=== PATIENT | male | born 1955 | race African-American/Black ===

== ENCOUNTER 2017-03-02 13:47 | Emergency (ER) | payer OTHER ==
--- NOTE | 2017-03-02 13:59 | PDOC ---
History of Present Illness - General History Source: Patient Exam Limitations: No Limitations - History of Present Illness Initial Comments: 03/02/17 14:03 The patient is a 61 year old male with a significant past medical history of chronic schizophrenia and mood disorder, hypertension, current cigarette smoker , sent from senior living by ambulance to the Emergency Department with episodes of vomiting yesterday. The patient reports that yesterday he has multiple episodes of vomiting, muscle aches, and fatigue, though these symptoms have resolved. He reports that the senior living sent him here though he feels fine. He admits that he is hungry, as he forgot his dentures and has not eaten today. The patient has no other complaints. The patient denies current nausea, vomiting, and diarrhea. Patient denies myalgia, neck pain, and back pain. Patient denies shortness of breath, or cough. <Megan Adams - Last Filed: 03/02/17 14:05> <Neema Valladares - Last Filed: 03/13/17 09:46> - General Stated Complaint: PAIN/WEAKNESS Time Seen by Provider: 03/02/17 13:55 Past History <Megan Adams - Last Filed: 03/02/17 14:05> - Past Medical History Anemia: No Asthma: No Cancer: No Cardiac Disorders: Yes CVA: No COPD: No CHF: No Dementia: No Diabetes: No GI Disorders: No Disorders: Yes HTN: Yes Hypercholesterolemia: No Liver Disease: No Psychiatric Problems: Yes (schizophrenia) Seizures: No Thyroid Disease: No - Surgical History Abdominal Surgery: No Appendectomy: No Cardiac Surgery: No Cholecystectomy: No Lung Surgery: No Neurologic Surgery: No Orthopedic Surgery: No - Psycho/Social/Smoking Cessation Hx Suicidal Ideation: No Smoking Status: Yes Smoking History: Current every day smoker Have you smoked in the past 12 months: Yes Number of Cigarettes Smoked Daily: 10 'Breaking Loose' booklet given: 01/04/15 Hx Alcohol Use: No Drug/Substance Use Hx: No Substance Use Type: None Hx Substance Use Treatment: No <Neema Valladares - Last Filed: 03/13/17 09:46> - Past Medical History Allergies/Adverse Reactions: Allergies Allergy/AdvReac Type Severity Reaction Status Date / Time Penicillins Allergy Unknown Verified 03/02/17 13:58 Home Medications: Ambulatory Orders Albuterol Sulfate Inhaler - [Ventolin Hfa Inhaler -] 1 - 2 inh PO QID 03/02/17 Amlodipine Besylate [Norvasc -] 5 mg PO DAILY 03/02/17 Ammonium Lactate [Quiana-Hydrolac] 240 gm TP BID 03/02/17 Aspirin [ASA -] 81 mg PO DAILY 03/02/17 Azelastine HCl 137 mcg NS BID 03/02/17 Cholecalciferol (Vitamin D3) [Vitamin D3] 50,000 unit PO WEEKLY 03/02/17 Clotrimazole 30 ml TP BID 03/02/17 Clozapine 300 mg PO BID 03/02/17 Divalproex *ER* [Depakote *ER* -] 500 mg PO BID 03/02/17 Divalproex Sodium [Depakote] 250 mg PO HS 03/02/17 Docusate Sodium 100 mg PO HS 03/02/17 Finasteride [Proscar] 5 mg PO DAILY 03/02/17 Lisinopril [Zestril] 40 mg PO DAILY 03/02/17 Meloxicam 7.5 mg PO DAILY 03/02/17 Tamsulosin HCl [Flomax] 0.4 mg PO DAILY 03/02/17 Review of Systems - Review of Systems Able to Perform ROS?: Yes Comments:: 03/02/17 14:03 CONSTITUTIONAL: Present: + hungry Absent: fever, chills, diaphoresis, generalized weakness, malaise, loss of appetite HEENT: Absent: rhinorrhea, nasal congestion, throat pain, throat swelling, difficulty swallowing, mouth swelling, ear pain, eye pain, visual Changes CARDIOVASCULAR: Absent: chest pain, syncope, palpitations, irregular heart rate, lightheadedness , peripheral edema RESPIRATORY: Absent: cough, shortness of breath, dyspnea with exertion, orthopnea, wheezing, stridor, hemoptysis GASTROINTESTINAL: Absent: abdominal pain, abdominal distension, nausea, vomiting, diarrhea, constipation, melena, hematochezia GENITOURINARY: Absent: dysuria, frequency, urgency, hesitancy, hematuria, flank pain, genital pain MUSCULOSKELETAL: Absent: myalgia, arthralgia, joint swelling SKIN: Absent: rash, itching, pallor HEMATOLOGIC/IMMUNOLOGIC: Absent: easy bleeding, easy bruising, lymphadenopathy, frequent infections ENDOCRINE: Absent: unexplained weight gain, unexplained weight loss, heat intolerance, cold intolerance NEUROLOGIC: Absent: headache, focal weakness or paresthesias, dizziness, unsteady gait, seizure, mental status changes, bladder or bowel incontinence PSYCHIATRIC: Absent: anxiety, depression, suicidal or homicidal ideation, hallucinations. <Megan Adams - Last Filed: 03/02/17 14:05> *Physical Exam - Vital Signs Last Vital Signs Temp Pulse Resp BP Pulse Ox 98.8 F 107 H 17 140/108 95 03/02/17 13:58 03/02/17 13:58 03/02/17 13:58 03/02/17 13:58 03/02/17 13:58 - Physical Exam Comments: 03/02/17 14:06 GENERAL: Well developed, well nourished. Awake and alert. In no acute distress. HEENT: Normocephalic, atraumatic. PERRLA, EOMI. No conjunctival pallor. Sclera are non- icteric. Moist mucous membranes. Oropharynx is clear. NECK: Supple. Full ROM. No JVD. Carotid pulses 2+ and symmetric, without bruits. No thyromegaly. No lymphadenopathy. CARDIOVASCULAR: Regular rate and rhythm. No murmurs, rubs, or gallops. Distal pulses are 2+ and symmetric. PULMONARY: No evidence of respiratory distress. Lungs clear to auscultation bilaterally. No wheezing, rales or rhonchi. ABDOMINAL: Soft. Non-tender. Non-distended. No rebound or guarding. No organomegaly. Normoactive bowel sounds. MUSCULOSKELETAL Normal range of motion at all joints. No bony deformities or tenderness. No CVA tenderness. EXTREMITIES: No cyanosis. No clubbing. No edema. No calf tenderness. SKIN: Warm and dry. Normal capillary refill. No rashes. No jaundice. NEUROLOGICAL: Alert, awake, appropriate. Cranial nerves 2-12 intact. No deficits to light touch and temperature in face, upper extremities and lower extremities. No motor deficits in the in face, upper extremities and lower extremities. Normoreflexic in the upper and lower extremities. Normal speech. Toes are downgoing bilaterally. PSYCHIATRIC: Cooperative. Good eye contact. Appropriate mood and affect. <Megan Adams - Last Filed: 03/02/17 14:05> Heart Score/ECG Review #1 General ECG Interpretation: Sinus Rhythm, Normal Rate (102), Normal Intervals, No acute ischemic changes - ECG Intrepretation Rhythm: Regular Rhythm - [place]: Normal <Neema Valladares - Last Filed: 03/13/17 09:46> ED Treatment Course - LABORATORY CBC & Chemistry Diagram: 03/02/17 14:02 03/02/17 14:02 <Neema Valladares - Last Filed: 03/13/17 09:46> Medical Decision Making - Medical Decision Making 03/02/17 13:56 61 yo M with h/o schizophrenia and mood disorder, tobacco use lives in a senior living, sent for evaluation for " not feeling well" pt state he threw up yesterday but has not thrown up today no f/c no chest pain no sob. no cough. no current complaints. was co myalgia at home. no other complaints. calm and cooperative in Ed on exam awake and alert lungs CTAB no crackles. heart RRR no mr/g. abd soft NT ND. skin warm and dry. differential: electorlyte abnormality, anemia, viral syndrome. plan trial po, cxr labs reassess. motrin for reported myalgia. 03/02/17 16:44 pt tolerated po. xray unremarkable. labs with mild increase to creatinine 1.8 given iv hydration. eating and drinking without diffiuclty. dc to senior living. 03/13/17 09:46 <Neema Valladares - Last Filed: 03/13/17 09:46> *DC/Admit/Observation/Transfer - Attestations Scribe Attestion: 03/02/17 14:04 Documentation prepared by Megan Adams, acting as medical videographer for Neema Valladares MD. <Megan Adams - Last Filed: 03/02/17 14:05> - Discharge Dispostion Admit: No <Neema Valladares - Last Filed: 03/13/17 09:46> Diagnosis at time of Disposition: Dehydration - Discharge Dispostion Disposition: HOME Condition at time of disposition: Improved - Referrals Referrals: Torri De León MD [Primary Care Provider] - - Patient Instructions Printed Discharge Instructions: Dehydration Additional Instructions: drink plenty of fluids. follow up wtih dr. Alaina Chapa . return for any problems or concerns vomiting or any problems
[2017-03-02] MEDS ORDERED: ACETAMINOPHEN 325 MG TABLET (FP) PO ONE (14:01)
[2017-03-02 14:04] VITALS: BMI 27.1
[2017-03-02] MEDS ORDERED: ACETAMINOPHEN 325 MG TABLET (FP) ONE (14:18)
[2017-03-02 14:43] LABS: BASOPHIL 0.8 % (0-2.0); MCH 29.8 pg (25.7-33.7); MCHC 32.8 g/dl (32.0-35.9); MEAN CELL VOLUME 90.9 fl (80-96); NEUTROPHILS 41.7 % (42.8-82.8); PLATELET COUNT 140 K/MM3 (134-434); RDW 17.1 % (11.9-15.9); WHITE BLOOD COUNT 5.7 K/mm3 (4.0-10.0)
[2017-03-02 15:08] LABS: ANION GAP 7 (8-16); CO2 29 mmol/L (21-32); COCKROFT - GAULT 55.29; CREATININE 1.8 mg/dL (0.7-1.3); GLUCOSE,RANDOM 93 mg/dL (74-106); SGOT/AST 21 U/L (15-37); SGPT/ALT 19 U/L (12-78)
[2017-03-02 15:10] LABS: ALK PHOS 77 U/L (45-117); BILIRUBIN,TOTAL 0.4 mg/dL (0.2-1.0); TOT PROT 6.3 g/dl (6.4-8.2)
[2017-03-02] MEDS ORDERED: SODIUM CHLORIDE 0.9% 1000 ML INFUS.BAG IV ONE (15:30)
[2017-03-02 17:00] VITALS: BP 133/85; PULSE 89; TEMP 98.4
--- NOTE | 2017-03-04 10:02 | EKG ---
Test Reason : Blood Pressure : / mmHG Vent. Rate : 102 BPM Atrial Rate : 102 BPM P-R Int : 172 ms QRS Dur : 098 ms QT Int : 374 ms P-R-T Axes : 031 -37 021 degrees QTc Int : 487 ms SINUS TACHYCARDIA LEFT AXIS DEVIATION SEPTAL INFARCT , AGE UNDETERMINED ABNORMAL ECG WHEN COMPARED WITH ECG OF 03-JAN-2015 14:04, PREMATURE VENTRICULAR COMPLEXES ARE NO LONGER PRESENT Confirmed by THAD PAPPAS MD ([id number]) on 03/04/2017 10:02:23 AM Referred By: Confirmed By:THAD PAPPAS MD
== END 2017-03-02 20:02 | disposition home or self-care (01) ==
LOC: JER 13:47
DX: E86.0 Dehydration (principal); R11.10 Vomiting, unspecified; I10 Essential (primary) hypertension; F20.9 Schizophrenia, unspecified; F39 Unspecified mood [affective] disorder; F17.210 Nicotine dependence, cigarettes, uncomplicated
CPT/HCPCS: 36415; 71020-TC; 80053; 82550; 82553; 83690; 85025; 93005; 93010; 99285-25

== ENCOUNTER 2017-05-25 13:22 | Emergency (ER) | payer OTHER ==
[2017-05-25 13:52] VITALS: BMI 23.0
--- NOTE | 2017-05-25 14:09 | PDOC ---
History of Present Illness <Chin Amador - Last Filed: 05/25/17 20:34> - General History Source: Patient, Other ([facility] ) Exam Limitations: Other (poor historian) - History of Present Illness Initial Comments: 05/25/17 14:09 Patient is a 62 year old male with a history of schizophrenia, mood disorders and hypertension sent from shelter due to two days of feeling dizzy and 3 months of decreased appetite and weight loss. The patient endorses every question with "a little bit" including fever, chills , sore throat, SOB, CP, abdominal pain, nausea, vomiting, diarrhea. However, if you ask in reverse, patient denies everything except for general weakness. The shelter endorsed that the patient has been complaining of dizziness and walking like he is unsteady for the last 2 days. He also has not had an appetite (15 lb weight loss) or "been acting like himself" since his last ED visit on 03/02/2017. Patient had a non concerning 24 hour halter 1 month ago, scheduled for stress test. <Porfirio Moran - Last Filed: 05/26/17 11:44> - General Chief Complaint: Lightheaded Stated Complaint: DIZINESS Time Seen by Provider: 05/25/17 13:49 Past History <Chin Amador - Last Filed: 05/25/17 20:34> - Past Medical History Anemia: No Asthma: No Cancer: No Cardiac Disorders: Yes CVA: No COPD: No CHF: No Dementia: No Diabetes: No GI Disorders: No Disorders: Yes HTN: Yes Hypercholesterolemia: No Liver Disease: No Psychiatric Problems: Yes (schizophrenia) Seizures: No Thyroid Disease: No - Surgical History Abdominal Surgery: No Appendectomy: No Cardiac Surgery: No Cholecystectomy: No Lung Surgery: No Neurologic Surgery: No Orthopedic Surgery: No - Immunization History Immunization Up to Date: Yes - Psycho/Social/Smoking Cessation Hx Suicidal Ideation: No Smoking Status: Yes Smoking History: Current every day smoker Have you smoked in the past 12 months: Yes Number of Cigarettes Smoked Daily: 20 Information on smoking cessation initiated: Yes 'Breaking Loose' booklet given: 05/25/17 Hx Alcohol Use: No Drug/Substance Use Hx: No Substance Use Type: None Hx Substance Use Treatment: No <Porfirio Moran - Last Filed: 05/26/17 11:44> - Past Medical History Allergies/Adverse Reactions: Allergies Allergy/AdvReac Type Severity Reaction Status Date / Time Penicillins Allergy Unknown Verified 03/02/17 13:58 Home Medications: Ambulatory Orders Albuterol Sulfate Inhaler - [Ventolin Hfa Inhaler -] 1 - 2 inh PO QID 03/02/17 Amlodipine Besylate [Norvasc -] 5 mg PO DAILY 03/02/17 Ammonium Lactate [Quiana-Hydrolac] 240 gm TP BID 03/02/17 Aspirin [ASA -] 81 mg PO DAILY 03/02/17 Azelastine HCl 137 mcg NS BID 03/02/17 Cholecalciferol (Vitamin D3) [Vitamin D3] 50,000 unit PO WEEKLY 03/02/17 Clotrimazole 30 ml TP BID 03/02/17 Clozapine 300 mg PO BID 03/02/17 Divalproex *ER* [Depakote *ER* -] 500 mg PO BID 03/02/17 Divalproex Sodium [Depakote] 250 mg PO HS 03/02/17 Docusate Sodium 100 mg PO HS 03/02/17 Finasteride [Proscar] 5 mg PO DAILY 03/02/17 Lisinopril [Zestril] 40 mg PO DAILY 03/02/17 Meloxicam 7.5 mg PO DAILY 03/02/17 Tamsulosin HCl [Flomax] 0.4 mg PO DAILY 03/02/17 Levofloxacin [Levaquin] 500 mg PO DAILY #7 tablet 05/25/17 Review of Systems - Review of Systems Able to Perform ROS?: Yes Is the patient limited [place] proficient: No Constitutional: Yes: Weakness HEENTM: Yes: See HPI Respiratory: Yes: See HPI Cardiac (ROS): Yes: See HPI ABD/GI: Yes: See HPI : Yes: See HPI Musculoskeletal: Yes: See HPI Integumentary: Yes: See HPI Neurological: Yes: See HPI, Weakness, Dizziness Endocrine: Yes: See HPI Hematologic/Lymphatic: Yes: See HPI <Porfirio Moran - Last Filed: 05/26/17 11:44> *Physical Exam - Vital Signs Last Vital Signs Temp Pulse Resp BP Pulse Ox 98.6 F 98 H 20 144/91 96 05/25/17 19:16 05/25/17 19:16 05/25/17 19:16 05/25/17 19:16 05/25/17 19:16 <Chin Amador - Last Filed: 05/25/17 20:34> - Vital Signs Last Vital Signs Temp Pulse Resp BP Pulse Ox 98.5 F 86 18 101/73 98 05/25/17 13:25 05/25/17 13:25 05/25/17 13:25 05/25/17 13:25 05/25/17 13:25 - Physical Exam General Appearance: Yes: Nourished, Appropriately Dressed, Apparent Distress HEENT: positive: EOMI, JULI Neck: positive: Supple. negative: Decreased range of motion, Lymphadenopathy (R ), Lymphadenopathy (L) Respiratory/Chest: positive: Lungs Clear, Normal Breath Sounds. negative: Chest Tender, Respiratory Distress Cardiovascular: positive: Regular Rhythm, Regular Rate. negative: Edema, JVD, Murmur Vascular Pulses: Carotid (R): 2+, Carotid (L): 2+, Dorsalis-Pedis (R): 2+ Gastrointestinal/Abdominal: positive: Normal Bowel Sounds, Tender, Soft. negative: Distended, Guarding, Rebound, Tenderness Musculoskeletal: positive: Normal Inspection. 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 negative: Confused, Disoriented Deep Tendon Reflexes: Knee (L): 2+, Knee (R): 2+, Bicep (L): 2+, Bicep (R): 2+ <Porfirio Moran - Last Filed: 05/26/17 11:44> ED Treatment Course - LABORATORY CBC & Chemistry Diagram: 05/25/17 15:41 05/25/17 15:41 - ADDITIONAL ORDERS Additional order review: Laboratory Results 05/25/17 05/25/17 05/25/17 15:41 15:41 15:35 Sodium 143 Potassium 3.9 Chloride 103 Carbon Dioxide 32 Anion Gap 8 BUN 36 H D Creatinine 1.7 H Creat Clearance w eGFR 41.04 Random Glucose 103 Lactic Acid 1.6 Calcium 9.0 Total Bilirubin 0.6 AST 17 ALT 15 Alkaline Phosphatase 73 Creatine Kinase 148 Troponin I < 0.02 Total Protein 6.6 Albumin 3.0 L TSH 0.42 Urine Color Yellow Urine Appearance Clear Urine pH 7.0 Urine Protein Negative Urine Glucose (UA) Negative Urine Ketones Negative Urine Blood Negative Urine Nitrite Negative Urine Bilirubin Negative Urine Urobilinogen 4.0 e.u/dl Ur Leukocyte Esterase Negative 05/25/17 15:41 RBC 4.09 MCV 90.8 MCHC 33.6 RDW 15.9 MPV 9.2 Neutrophils % 72.9 D Lymphocytes % 17.3 D Monocytes % 8.7 Eosinophils % 0.7 Basophils % 0.4 - Medications Given in the ED: ED Medications Discontinued Medications Generic Name Dose Route Start Last Admin Trade Name Freq PRN Reason Stop Dose Admin Sodium Chloride 1,000 mls @ 1,000 mls/hr 05/25/17 18:53 05/25/17 19:06 Normal Saline - IV 05/25/17 19:52 1,000 mls/hr ASDIR STA Administration <Chin Amador - Last Filed: 05/25/17 20:34> - LABORATORY CBC & Chemistry Diagram: 05/25/17 15:41 05/25/17 15:41 - RADIOLOGY Chest X-Ray Result: Other (Increased L base atelectasis) <Porfirio Moran - Last Filed: 05/26/17 11:44> Medical Decision Making - Medical Decision Making 05/25/17 14:09 62 year old with schizophrenia presenting with general weakness, malaise and reported decreased appetite for two days Ddx is extensive and not limited to infections, electrolyte abnormalities, cardiac pathologies, Basic labs, Lactic acid Cardiac enzymes UA CXR Feed, monitor and reassess 05/25/17 16:42 CBC WBC 9.4 K/mm3 (4.0-10.0) D 05/25/17 15:41 RBC 4.09 M/mm3 (4.00-5.60) 05/25/17 15:41 Hgb 12.5 GM/dL (11.7-16.9) 05/25/17 15:41 Hct 37.1 % (35.4-49) 05/25/17 15:41 MCV 90.8 fl (80-96) 05/25/17 15:41 MCH 30.5 pg (25.7-33.7) 05/25/17 15:41 MCHC 33.6 g/dl (32.0-35.9) 05/25/17 15:41 RDW 15.9 % (11.9-15.9) 05/25/17 15:41 Plt Count 153 K/MM3 (134-434) 05/25/17 15:41 MPV 9.2 fl (7.5-11.1) 05/25/17 15:41 Neutrophils % 72.9 % (42.8-82.8) D 05/25/17 15:41 Lymphocytes % 17.3 % (8-40) D 05/25/17 15:41 Monocytes % 8.7 % (3.8-10.2) 05/25/17 15:41 Eosinophils % 0.7 % (0-4.5) 05/25/17 15:41 Basophils % 0.4 % (0-2.0) 05/25/17 15:41 non concerning CBC Urine Test Results Urine Color Yellow 05/25/17 15:41 Urine Appearance Clear 05/25/17 15:41 Urine pH 7.0 (5.0-8.0) 05/25/17 15:41 Urine Protein Negative (NEGATIVE) 05/25/17 15:41 Urine Glucose (UA) Negative (NEGATIVE) 05/25/17 15:41 Urine Ketones Negative (NEGATIVE) 05/25/17 15:41 Urine Blood Negative (NEGATIVE) 05/25/17 15:41 Urine Nitrite Negative (NEGATIVE) 05/25/17 15:41 Urine Bilirubin Negative (NEGATIVE) 05/25/17 15:41 Ur Leukocyte Esterase Negative (NEGATIVE) 05/25/17 15:41 non concerning UA 05/25/17 17:28 Lactic acid 1.6, non concerning Patient states he is feeling better and asking for soup. Ate 2x sandwiches and a full meal plate. Healthy appetite. 05/25/17 18:52 CMP Sodium 143 mmol/L (136-145) 05/25/17 15:41 Potassium 3.9 mmol/L (3.5-5.1) 05/25/17 15:41 Chloride 103 mmol/L (98-107) 05/25/17 15:41 Carbon Dioxide 32 mmol/L (21-32) 05/25/17 15:41 Anion Gap 8 (8-16) 05/25/17 15:41 BUN 36 mg/dL (7-18) H D 05/25/17 15:41 Creatinine 1.7 mg/dL (0.7-1.3) H 05/25/17 15:41 Creat Clearance w eGFR 41.04 (>60) 05/25/17 15:41 Random Glucose 103 mg/dL (74-106) 05/25/17 15:41 Lactic Acid 1.6 mmol/L (0.4-2.0) 05/25/17 15:35 Calcium 9.0 mg/dL (8.5-10.1) 05/25/17 15:41 Total Bilirubin 0.6 mg/dL (0.2-1.0) 05/25/17 15:41 AST 17 U/L (15-37) 05/25/17 15:41 ALT 15 U/L (12-78) 05/25/17 15:41 Alkaline Phosphatase 73 U/L (45-117) 05/25/17 15:41 Creatine Kinase 148 IU/L (39-308) 05/25/17 15:41 Troponin I < 0.02 ng/ml (0.00-0.05) 05/25/17 15:41 Total Protein 6.6 g/dl (6.4-8.2) 05/25/17 15:41 Albumin 3.0 g/dl (3.4-5.0) L 05/25/17 15:41 TSH 0.42 uIU/ml (0.358-3.74) 05/25/17 15:41 CR per baseline (1.5-1.8) Slightly elevated BUN, patient to receive 1 NS for dehydration Good to go home after fluids and final read on CXR 05/25/17 19:49 Patient care signed out to Dr. Eckert <Porfirio Moran - Last Filed: 05/26/17 11:44> *DC/Admit/Observation/Transfer <Chin Amador - Last Filed: 05/25/17 20:34> - Attestations Physician Attestion: 05/26/17 11:44 I, Dr. Porfirio Moran, attest that this document has been prepared under my direction and personally reviewed by me in its entirety. I further attest, that it accurately reflects all work, treatment, procedures and medical decision -making performed by me. <Porfirio Moran - Last Filed: 05/26/17 11:44> Diagnosis at time of Disposition: PNA (pneumonia) - Discharge Dispostion Disposition: HOME Condition at time of disposition: Good - Prescriptions Prescriptions: Levofloxacin [Levaquin] 500 mg PO DAILY #7 tablet - Patient Instructions Printed Discharge Instructions: DI for Pneumonia -- Adult Additional Instructions: You have pneumonia. Take the antibiotics as prescribed. You can picker packer your prescription at the [facility] on [address] Follow up with your primary care doctor within 1 week for a re-evaluation. Print Language: GAMBIAN
--- NOTE | 2017-05-25 15:01 | PDOC ---
Attending Attestation - Resident Resident Name: Porfirio Moran - ED Attending Attestation I have performed the following: I have examined & evaluated the patient, The case was reviewed & discussed with the resident, I agree w/resident's findings & plan, Exceptions are as noted - HPI HPI: 05/25/17 15:00 62M with schizophrenia, HTN presenting with generalized weakness. Pt states that he has felt unwell for several days now. When asked if anything in particular is bothering him, he denies any focal complaints. DENIES CP/SOB. DENIES dizziness. DENIES HO/N/V. DENIES abdominal pain. DENIES diarrhea/ constipation. DENIES F/C. Pt states that he just feels weak all over. Pt is still able to ambulate without any difficulty, though he reports that he is more fatigued than normal. - Physicial Exam PE: 05/25/17 15:41 "GENERAL: Awake, alert, and fully oriented, in no acute distress HEAD: No signs of trauma EYES: PERRLA, EOMI, sclera anicteric, conjunctiva clear ENT: Auricles normal inspection, hearing grossly normal, nares patent, oropharynx clear without exudates. Moist mucosa NECK: Normal ROM, supple, no lymphadenopathy, JVD, or masses LUNGS: Breath sounds equal, clear to auscultation bilaterally. No wheezes, and no crackles HEART: Regular rate and rhythm, normal S1 and S2, no murmurs, rubs or gallops ABDOMEN: Nontender, Soft, normoactive bowel sounds. No guarding, no rebound. No masses EXTREMITIES: Normal range of motion, no edema. No clubbing or cyanosis. No cords, erythema, or tenderness NEUROLOGICAL: Cranial nerves II through XII intact, 5/5 strength and sensation in all extremities. Ambulatory with steady gait, no ataxia. EOMI, visual reina intact. No nystagmus. SKIN: Warm, Dry, normal turgor, no rashes or lesions noted. " 05/25/17 15:42 - Medical Decision Making 05/25/17 15:43 62 M with generalized weakness x several days. Etiology unclear. Will work up for infectious process, as well as cardiac process and metabolic derangement. Primary neuro process is unlikely given normal neuro exam. - Labs, trop - UA, CXR 05/25/17 20:13 CBC,CMP WBC 9.4 K/mm3 (4.0-10.0) D 05/25/17 15:41 RBC 4.09 M/mm3 (4.00-5.60) 05/25/17 15:41 Hgb 12.5 GM/dL (11.7-16.9) 05/25/17 15:41 Hct 37.1 % (35.4-49) 05/25/17 15:41 MCV 90.8 fl (80-96) 05/25/17 15:41 MCH 30.5 pg (25.7-33.7) 05/25/17 15:41 MCHC 33.6 g/dl (32.0-35.9) 05/25/17 15:41 RDW 15.9 % (11.9-15.9) 05/25/17 15:41 Plt Count 153 K/MM3 (134-434) 05/25/17 15:41 MPV 9.2 fl (7.5-11.1) 05/25/17 15:41 Neutrophils % 72.9 % (42.8-82.8) D 05/25/17 15:41 Lymphocytes % 17.3 % (8-40) D 05/25/17 15:41 Monocytes % 8.7 % (3.8-10.2) 05/25/17 15:41 Eosinophils % 0.7 % (0-4.5) 05/25/17 15:41 Basophils % 0.4 % (0-2.0) 05/25/17 15:41 Sodium 143 mmol/L (136-145) 05/25/17 15:41 Potassium 3.9 mmol/L (3.5-5.1) 05/25/17 15:41 Chloride 103 mmol/L (98-107) 05/25/17 15:41 Carbon Dioxide 32 mmol/L (21-32) 05/25/17 15:41 Anion Gap 8 (8-16) 05/25/17 15:41 BUN 36 mg/dL (7-18) H D 05/25/17 15:41 Creatinine 1.7 mg/dL (0.7-1.3) H 05/25/17 15:41 Creat Clearance w eGFR 41.04 (>60) 05/25/17 15:41 Random Glucose 103 mg/dL (74-106) 05/25/17 15:41 Lactic Acid 1.6 mmol/L (0.4-2.0) 05/25/17 15:35 Calcium 9.0 mg/dL (8.5-10.1) 05/25/17 15:41 Total Bilirubin 0.6 mg/dL (0.2-1.0) 05/25/17 15:41 AST 17 U/L (15-37) 05/25/17 15:41 ALT 15 U/L (12-78) 05/25/17 15:41 Alkaline Phosphatase 73 U/L (45-117) 05/25/17 15:41 Creatine Kinase 148 IU/L (39-308) 05/25/17 15:41 Troponin I < 0.02 ng/ml (0.00-0.05) 05/25/17 15:41 Total Protein 6.6 g/dl (6.4-8.2) 05/25/17 15:41 Albumin 3.0 g/dl (3.4-5.0) L 05/25/17 15:41 TSH 0.42 uIU/ml (0.358-3.74) 05/25/17 15:41 CXR shows possible PNA. Will treat with levaquin. Prescription sent to pharmacy and results discussed with pt, who expresses understanding and importance of taking antibiotics. Stable for DC back to facility. Heart Score/ECG Review - ECG Impressions Comment:: 05/25/17 15:44 NSR, no PRINCESS/STDs, no TWIs, intervals wnl
[2017-05-25 16:04] LABS: BASOPHIL 0.4 % (0-2.0); EOSINOPHIL 0.7 % (0-4.5); MCH 30.5 pg (25.7-33.7); MCHC 33.6 g/dl (32.0-35.9); MEAN CELL VOLUME 90.8 fl (80-96); MEAN PLT VOLUME 9.2 fl (7.5-11.1); NEUTROPHILS 72.9 % (42.8-82.8); PLATELET COUNT 153 K/MM3 (134-434); RDW 15.9 % (11.9-15.9); WHITE BLOOD COUNT 9.4 K/mm3 (4.0-10.0)
[2017-05-25 16:08] LABS: URINE APPEARANCE CLEAR; URINE BILIRUBIN NEGATIVE (NEGATIVE); URINE BLOOD NEGATIVE (NEGATIVE); URINE COLOR YELLOW; URINE GLUCOSE (UA) NEGATIVE (NEGATIVE); URINE KETONE NEGATIVE (NEGATIVE); URINE LEUK ESTERASE NEGATIVE (NEGATIVE); URINE NITRITE NEGATIVE (NEGATIVE); URINE PROTEIN NEGATIVE (NEGATIVE); URINE UROBILINOGEN 4.0 E.U/dl mg/dL (0.2-1.0)
[2017-05-25 18:03] LABS: ANION GAP 8 (8-16); BILIRUBIN,TOTAL 0.6 mg/dL (0.2-1.0); CO2 32 mmol/L (21-32); CREATININE 1.7 mg/dL (0.7-1.3); GLUCOSE,RANDOM 103 mg/dL (74-106); SGOT/AST 17 U/L (15-37); SGPT/ALT 15 U/L (12-78); TOT PROT 6.6 g/dl (6.4-8.2)
[2017-05-25 18:11] LABS: ALK PHOS 73 U/L (45-117); CPK 148 IU/L (39-308); TROPONIN I < 0.02 ng/ml (0.00-0.05)
[2017-05-25 18:12] LABS: THYROID STIMULATING HORMONE 0.42 uIU/ml (0.358-3.74)
[2017-05-25] MEDS ORDERED: SODIUM CHLORIDE 1,000 ML IV STA (18:53)
[2017-05-25 19:18] VITALS: BP 144/91; PULSE 98; TEMP 98.6
[2017-05-25] MEDS ORDERED: LEVOFLOXACIN 500 MG TABLET (FP) PO ONE (20:29)
[2017-05-25] MEDS ORDERED: LEVOFLOXACIN 500 MG TABLET (FP) ONE (20:47)
--- NOTE | 2017-05-28 13:36 | EKG ---
Test Reason : Blood Pressure : / mmHG Vent. Rate : 102 BPM Atrial Rate : 102 BPM P-R Int : 182 ms QRS Dur : 098 ms QT Int : 374 ms P-R-T Axes : 059 -39 040 degrees QTc Int : 487 ms SINUS TACHYCARDIA LEFT ATRIAL ENLARGEMENT LEFT ANTERIOR FASCICULAR BLOCK EMBRYONIC Q WAVE IN V2 ABNORMAL ECG WHEN COMPARED WITH ECG OF 02-MAR-2017 14:25, NO SIGNIFICANT CHANGE WAS FOUND REPEAT EKG IF CLINICALLY INDICATED Confirmed by DAISY DELAROSA MD ([id number]) on 05/28/2017 1:35:57 PM Referred By: Confirmed By:DAISY DELAROSA MD
== END 2017-05-25 22:16 | disposition home or self-care (01) ==
LOC: JER 13:22
PROC: 3E0337Z Introduction of Electrolytic and Water Balance Substance into Peripheral Vein, Percutaneous Approach (ICD-10-PCS; principal; 2017-05-25)
DX: J18.9 Pneumonia, unspecified organism (principal); I10 Essential (primary) hypertension; F20.89 Other schizophrenia; F39 Unspecified mood [affective] disorder; F17.210 Nicotine dependence, cigarettes, uncomplicated
CPT/HCPCS: 36415; 71020-TC; 80053; 81003; 83605; 84443; 84484; 85025; 93005; 93010; 96360; 99283-25

== ENCOUNTER 2017-06-06 08:49 | Emergency (ER) | payer OTHER ==
[2017-06-06 09:11] VITALS: BMI 21.8
--- NOTE | 2017-06-06 09:28 | PDOC ---
Attending Attestation - Resident Resident Name: Dylan Gonzalez - ED Attending Attestation I have performed the following: I have examined & evaluated the patient, The case was reviewed & discussed with the resident, I agree w/resident's findings & plan, Exceptions are as noted - HPI HPI: 62 yo M history schizophrenia, HTN presents with dizziness. He states that he feels lightheaded at times, currently resolved. He presented with similar symptoms on 05/25, had labs, CXR, no acute findings at the time. Pt is vague historian due to history of schizophrenia, somewhat odd affect. He states that he mostly gets dizzy when he is smoking, and it improves when he stops. He does not intend to quit. He denies any SOB, wheezing, cp. - Physicial Exam PE: GENERAL: Awake, alert, and fully oriented, in no acute distress HEAD: No signs of trauma EYES: PERRLA, EOMI, sclera anicteric, conjunctiva clear ENT: Auricles normal inspection, hearing grossly normal, nares patent, oropharynx clear without exudates. Moist mucosa NECK: Normal ROM, supple, no lymphadenopathy, JVD, or masses LUNGS: Breath sounds equal, clear to auscultation bilaterally. No wheezes, and no crackles HEART: Regular rate and rhythm, normal S1 and S2, no murmurs, rubs or gallops ABDOMEN: Soft, nontender, normoactive bowel sounds. No guarding, no rebound. No masses EXTREMITIES: Normal range of motion, no edema. No clubbing or cyanosis. No cords, erythema, or tenderness NEUROLOGICAL: Cranial nerves II through XII grossly intact. Normal speech, normal gait SKIN: Warm, Dry, normal turgor, no rashes or lesions noted. - Medical Decision Making Patient with normal exam with exception of tachycardia. He is asymptomatic at present, requesting lunch. Will check labs and give IV hydration. Likely DC home.
--- NOTE | 2017-06-06 09:30 | PDOC ---
History of Present Illness - General Chief Complaint: Weakness Stated Complaint: WEAKNESS Time Seen by Provider: 06/06/17 08:57 History Source: Patient - History of Present Illness Initial Comments: 06/06/17 09:26 Patient is a 62M with history of schizophrenia, HTN, an unknown heart problem and possible blood transfusion here today with dizziness for the past several hours. He denies associated weakness, fevers, chills, nausea, vomiting, changes to his medications and decreased PO intake. He was seen here on 05/25 where he got an extensive workup that showed a possible pneumonia. He was discharged on levaquin, which he reports taking. He denies chest pain, shortness of breath, abdominal pain, dysuria, constipation and diarrhea. He states that he had a blood transfusion from a friend and had a heart attack about a year ago but just dealt with it himself. He denies suicidal and homicidal ideation. Past History - Past Medical History Allergies/Adverse Reactions: Allergies Allergy/AdvReac Type Severity Reaction Status Date / Time Penicillins Allergy Unknown Verified 06/06/17 09:07 Home Medications: Ambulatory Orders Albuterol Sulfate Inhaler - [Ventolin Hfa Inhaler -] 1 - 2 inh PO QID 03/02/17 Amlodipine Besylate [Norvasc -] 5 mg PO DAILY 03/02/17 Ammonium Lactate [Quiana-Hydrolac] 240 gm TP BID 03/02/17 Aspirin [ASA -] 81 mg PO DAILY 03/02/17 Azelastine HCl 137 mcg NS BID 03/02/17 Cholecalciferol (Vitamin D3) [Vitamin D3] 50,000 unit PO WEEKLY 03/02/17 Clotrimazole 30 ml TP BID 03/02/17 Clozapine 300 mg PO BID 03/02/17 Divalproex *ER* [Depakote *ER* -] 500 mg PO BID 03/02/17 Divalproex Sodium [Depakote] 250 mg PO HS 03/02/17 Docusate Sodium 100 mg PO HS 03/02/17 Finasteride [Proscar] 5 mg PO DAILY 03/02/17 Lisinopril [Zestril] 40 mg PO DAILY 03/02/17 Meloxicam 7.5 mg PO DAILY 03/02/17 Tamsulosin HCl [Flomax] 0.4 mg PO DAILY 03/02/17 Levofloxacin [Levaquin] 500 mg PO DAILY #7 tablet 05/25/17 Anemia: No Asthma: No Cancer: No Cardiac Disorders: Yes CVA: No COPD: No CHF: No Dementia: No Diabetes: No GI Disorders: No Disorders: Yes HTN: Yes Hypercholesterolemia: No Liver Disease: No Psychiatric Problems: Yes (schizophrenia) Seizures: No Thyroid Disease: No - Surgical History Abdominal Surgery: No Appendectomy: No Cardiac Surgery: No Cholecystectomy: No Lung Surgery: No Neurologic Surgery: No Orthopedic Surgery: No - Immunization History Immunization Up to Date: Yes - Psycho/Social/Smoking Cessation Hx Suicidal Ideation: No Smoking Status: Yes Smoking History: Current every day smoker Have you smoked in the past 12 months: Yes Number of Cigarettes Smoked Daily: 20 Information on smoking cessation initiated: No 'Breaking Loose' booklet given: 05/25/17 Hx Alcohol Use: No Drug/Substance Use Hx: No Substance Use Type: None Hx Substance Use Treatment: No Review of Systems - Review of Systems Comments:: 06/06/17 09:35 GENERAL/CONSTITUTIONAL: No fever or chills. No weakness. HEAD, EYES, EARS, NOSE AND THROAT: No change in vision. No ear pain or discharge. No sore throat. CARDIOVASCULAR: No chest pain or shortness of breath RESPIRATORY: No cough, wheezing, or hemoptysis. GASTROINTESTINAL: No nausea, vomiting, diarrhea or constipation. GENITOURINARY: No dysuria, frequency, or change in urination. SKIN: No rash NEUROLOGIC: No headache, vertigo, loss of consciousness, or change in strength/ sensation. HEMATOLOGIC/LYMPHATIC: No anemia, easy bleeding, or history of blood clots. ALLERGIC/IMMUNOLOGIC: No hives or skin allergy. *Physical Exam - Vital Signs Last Vital Signs Temp Pulse Resp BP Pulse Ox 98 F 105 H 18 138/92 94 L 06/06/17 09:00 06/06/17 09:00 06/06/17 09:00 06/06/17 09:00 06/06/17 09:00 - Physical Exam Comments: 06/06/17 09:39 GENERAL: Awake, alert, and fully oriented, in no acute distress HEAD: No signs of trauma, normocephalic, atraumatic EYES: Near pinpoint pupils, minimally reactive, EOMI, sclera anicteric, conjunctiva clear ENT: Auricles normal inspection, hearing grossly normal, nares patent, oropharynx clear without exudates. Moist mucosa NECK: Normal ROM, supple, no lymphadenopathy, JVD, or masses LUNGS: No distress, speaks full sentences, clear to auscultation bilaterally HEART: Regular rhythm, tachycardic, normal S1 and S2, no murmurs, rubs or gallops, peripheral pulses normal and equal bilaterally. ABDOMEN: Soft, nontender, normoactive bowel sounds. No guarding, no rebound. No masses EXTREMITIES: Normal inspection, Normal range of motion, no edema. No clubbing or cyanosis. NEUROLOGICAL: Cranial nerves II through XII grossly intact. Normal speech, shuffling gait, no focal sensorimotor deficits, no ataxia SKIN: Warm, Dry, normal turgor, no rashes or lesions noted. Heart Score/ECG Review - History History: Slightly suspicious - Electrocardiogram EKG: Normal - Age Age: 45-65 - Risk Factors Risk Factors Heart Score: Yes Hx Hypertension, Yes Smoking History Based on the list above the patient has:: 1-2 risk factors - ECG Intrepretation Comment:: 06/06/17 09:41 ECG shows tachycarida to 100 bpm, left axis deviation, sinus rhythm, no t -wave inversions or depressions. When compared to prior ecg, no significant changes. QTc = 490, MN = 182. ED Treatment Course - LABORATORY CBC & Chemistry Diagram: 06/06/17 10:10 06/06/17 10:10 - RADIOLOGY Radiology Studies Ordered: Category Date Time Status CHEST X-RAY PORTABLE* [RAD] Stat Radiology 06/06/17 09:26 Ordered Medical Decision Making - Medical Decision Making 06/06/17 09:42 Patient is a 62M with history of schizophrenia, HTN, possible transfusion, and possible heart disease here today with dizziness. Tachycardic, O2 sat at 94%. Neuro exam shows no focal deficit. Differential diagnosis is broad, and includes , but is not limited to: ACS, psych, arrythmia, COPD/Asthma, pneumonia. Will evaluate with cbc, cmp, cxr, trop, ecg, and ua. 06/06/17 10:58 CXR shows no acute cardiopulmonary process. 06/06/17 11:33 Cr 1.3, below baseline, BUN at baseline. Trop negative, K 3.3. Labs otherwise reassuring. 06/06/17 11:40 Return precautions given, patient expressed understanding, agrees with plan to go home. Patient alert and ambulatory. UA canceled, patient was not able to give urine, asymptomatic. *DC/Admit/Observation/Transfer Diagnosis at time of Disposition: Dizziness - Discharge Dispostion Disposition: HOME Condition at time of disposition: Good Admit: No - Referrals Referrals: Chin Sanchez MD [Primary Care Provider] - - Patient Instructions Printed Discharge Instructions: DI for Dizziness-Nonvertigo
[2017-06-06 10:15] LABS: BASOPHIL 1.3 % (0-2.0); EOSINOPHIL 0.7 % (0-4.5); MCH 30.9 pg (25.7-33.7); MEAN CELL VOLUME 90.9 fl (80-96); NEUTROPHILS 59.8 % (42.8-82.8); PLATELET COUNT 158 K/MM3 (134-434); RDW 15.9 % (11.9-15.9)
[2017-06-06] MEDS ORDERED: SODIUM CHLORIDE 1,000 ML IV STA (10:34)
[2017-06-06 10:43] LABS: ALBUMIN 3.4 g/dl (3.4-5.0); BILIRUBIN,TOTAL 0.5 mg/dL (0.2-1.0); CALCIUM 9.3 mg/dL (8.5-10.1); CO2 30 mmol/L (21-32); CREATININE 1.3 mg/dL (0.7-1.3); GLUCOSE,RANDOM 86 mg/dL (74-106); INR 0.98 (0.82-1.09); MAGNESIUM 2.1 mg/dL (1.8-2.4); PROTHROMBIN TIME (PATIENT) 10.8 SEC (9.98-11.88); SGOT/AST 17 U/L (15-37); SGPT/ALT 18 U/L (12-78); TOT PROT 6.9 g/dl (6.4-8.2)
[2017-06-06 11:01] LABS: ALK PHOS 75 U/L (45-117); CPK 173 IU/L (39-308); TROPONIN I < 0.02 ng/ml (0.00-0.05)
--- NOTE | 2017-06-06 11:10 | EKG ---
Test Reason : Blood Pressure : / mmHG Vent. Rate : 100 BPM Atrial Rate : 100 BPM P-R Int : 182 ms QRS Dur : 096 ms QT Int : 380 ms P-R-T Axes : 046 -36 023 degrees QTc Int : 490 ms SINUS RHYTHM WITH OCCASIONAL PREMATURE VENTRICULAR COMPLEXES LEFT AXIS DEVIATION SEPTAL INFARCT , AGE UNDETERMINED ABNORMAL ECG WHEN COMPARED WITH ECG OF 25-MAY-2017 13:50, PREMATURE VENTRICULAR COMPLEXES ARE NOW PRESENT SEPTAL INFARCT IS NOW PRESENT Confirmed by MARIEL DAY, LAURA ([id number]) on 06/06/2017 11:09:42 AM Referred By: Confirmed By:LAURA FLOYD MD
[2017-06-06 11:20] LABS: ANION GAP 10 (8-16)
[2017-06-06 13:02] VITALS: BP 132/73; PULSE 73; TEMP 97.9
== END 2017-06-06 12:45 | disposition home or self-care (01) ==
LOC: JER 08:49
PROC: 3E0337Z Introduction of Electrolytic and Water Balance Substance into Peripheral Vein, Percutaneous Approach (ICD-10-PCS; principal; 2017-06-06)
DX: R42 Dizziness and giddiness (principal); I10 Essential (primary) hypertension; F20.9 Schizophrenia, unspecified
CPT/HCPCS: 36415; 71010-TC; 80053; 82553; 83735; 84484; 85025; 85610; 93005; 93010; 99284-25

== ENCOUNTER 2017-06-11 09:42 | Emergency (ER) | payer OTHER ==
[2017-06-11 10:08] VITALS: BMI 21.8
--- NOTE | 2017-06-11 10:08 | PDOC ---
History of Present Illness - General History Source: Patient - History of Present Illness Associated Symptoms: denies: chest pain, cough, diaphoresis, fever/chills, headaches, malaise, nausea/vomiting, shortness of breath <Ciara Ellis - Last Filed: 06/11/17 11:34> <Monica Deng - Last Filed: 06/15/17 09:04> - General Chief Complaint: Lightheaded Stated Complaint: DIZZINESS Time Seen by Provider: 06/11/17 09:54 Past History - Past Medical History Anemia: No Asthma: No Cancer: No Cardiac Disorders: Yes CVA: No COPD: No CHF: No Dementia: No Diabetes: No GI Disorders: No Disorders: Yes HTN: Yes Hypercholesterolemia: No Liver Disease: No Psychiatric Problems: Yes (schizophrenia) Seizures: No Thyroid Disease: No - Surgical History Abdominal Surgery: No Appendectomy: No Cardiac Surgery: No Cholecystectomy: No Lung Surgery: No Neurologic Surgery: No Orthopedic Surgery: No - Immunization History Immunization Up to Date: Yes - Psycho/Social/Smoking Cessation Hx Anxiety: No Suicidal Ideation: No Smoking Status: Yes Smoking History: Current every day smoker Have you smoked in the past 12 months: Yes Number of Cigarettes Smoked Daily: 20 Information on smoking cessation initiated: No 'Breaking Loose' booklet given: 05/25/17 Hx Alcohol Use: No Drug/Substance Use Hx: No Substance Use Type: None Hx Substance Use Treatment: No <Ciara Ellis - Last Filed: 06/11/17 11:34> <Monica Deng - Last Filed: 06/15/17 09:04> - Past Medical History Allergies/Adverse Reactions: Allergies Allergy/AdvReac Type Severity Reaction Status Date / Time Penicillins Allergy Unknown Verified 06/11/17 11:09 Home Medications: Ambulatory Orders Albuterol Sulfate Inhaler - [Ventolin Hfa Inhaler -] 1 - 2 inh PO QID 03/02/17 Amlodipine Besylate [Norvasc -] 5 mg PO DAILY 03/02/17 Ammonium Lactate [Quiana-Hydrolac] 240 gm TP BID 03/02/17 Aspirin [ASA -] 81 mg PO DAILY 03/02/17 Azelastine HCl 137 mcg NS BID 03/02/17 Cholecalciferol (Vitamin D3) [Vitamin D3] 50,000 unit PO WEEKLY 03/02/17 Clotrimazole 30 ml TP BID 03/02/17 Clozapine 300 mg PO BID 03/02/17 Divalproex *ER* [Depakote *ER* -] 500 mg PO BID 03/02/17 Divalproex Sodium [Depakote] 250 mg PO HS 03/02/17 Docusate Sodium 100 mg PO HS 03/02/17 Finasteride [Proscar] 5 mg PO DAILY 03/02/17 Lisinopril [Zestril] 40 mg PO DAILY 03/02/17 Meloxicam 7.5 mg PO DAILY 03/02/17 Tamsulosin HCl [Flomax] 0.4 mg PO DAILY 03/02/17 Levofloxacin [Levaquin] 500 mg PO DAILY #7 tablet 05/25/17 Review of Systems - Review of Systems Constitutional: No: Chills, Fever HEENTM: No: Blurred Vision Respiratory: No: Cough, Shortness of Breath Cardiac (ROS): Yes: Lightheadedness. No: Chest Pain ABD/GI: No: Nausea, Vomiting Neurological: No: Headache, Numbness, Weakness <Ciara Ellis - Last Filed: 06/11/17 11:34> *Physical Exam - Vital Signs Last Vital Signs Temp Pulse Resp BP Pulse Ox 98.7 F 106 H 20 120/80 97 06/11/17 09:53 06/11/17 09:53 06/11/17 09:53 06/11/17 09:53 06/11/17 09:53 - Physical Exam General Appearance: Yes: Appropriately Dressed. No: Apparent Distress HEENT: positive: Normal Voice Neck: positive: Supple Respiratory/Chest: positive: Lungs Clear, Normal Breath Sounds. negative: Respiratory Distress Cardiovascular: positive: Regular Rate, S1, S2 Gastrointestinal/Abdominal: positive: Soft. negative: Tender Extremity: positive: Normal Inspection Integumentary: positive: Dry, Warm Neurologic: positive: Fully Oriented, Alert, Normal Mood/Affect, Motor Strength 5/5, Facial Droop, Finger to Nose. negative: Disoriented <Ciara Ellis - Last Filed: 06/11/17 11:34> - Vital Signs Last Vital Signs Temp Pulse Resp BP Pulse Ox 98.2 F 96 H 18 125/88 96 06/11/17 11:42 06/11/17 11:42 06/11/17 11:42 06/11/17 11:42 06/11/17 11:42 <Monica Deng - Last Filed: 06/15/17 09:04> Medical Decision Making - Medical Decision Making 06/11/17 10:03 62 yo M, h/o schizophrenia, ?compliant w/ meds, endorses chronic dizziness x 4 years, sent from [facility] for dizziness this am, similar to his usual dizziness per pt. Of note, pt has had multiple ED visits for same, including ~6 days ago and had had neg w/u in ED and discharged. Pt states he has seen his PMD since last ED visit but for unclear reasons, did not discuss dizziness w/ MD. Pt denies vertigo, HO, visual changes, n/v, focal weakness, CP or SOB See exam Chronic dizziness in pt w/ psych d/o w/ ?meds non-compliance Well known to ED staff w/ neg work up multiple times in ED including visit last week Pt well agustina and alert and asked for food immediately when I walked into room, was slightly tachycardic at triage (HR wnl on my exam) w/ unremarkable exam otherwise Case d/w ED attg who saw pt on last visit, states no labs necessary today, pt to be discharged back to [place] 06/11/17 10:25 Pt's pillowcase cleaner, Ben rothman is in ED and states he knows pt very well. States pt has been c/o dizziness for "some time" and has been evaluated by his PMD with no clear diagnosis. senior strategy manager informs me that pt has been evaluated by neuro in the past but for a different complaint and that w/u was negative then. I had extensive conversation with pillowcase cleaner as to why the ED might not be the best place to seek evaluation for pt's chronic complains and that pt need to continue to closely f/u with his PMD. Questions asked and answered. senior strategy manager feels safe taking pt back to facility 06/11/17 11:38 <Ciara Ellis - Last Filed: 06/11/17 11:34> *DC/Admit/Observation/Transfer <Ciara Ellis - Last Filed: 06/11/17 11:34> - Attestations Physician Attestion: I reviewed the case with the mid-level practitioner and agree with the mid- level practitioner's assessment, diagnosis and disposition. <Monica Deng - Last Filed: 06/15/17 09:04> Diagnosis at time of Disposition: Dizziness - Discharge Dispostion Disposition: HOME Condition at time of disposition: Good - Patient Instructions Printed Discharge Instructions: Dizziness, Nonvertigo Additional Instructions: The reason for your dizziness is unclear at this time as you have had symptoms for several years. You have been seen in the ER multiple times for similar complaints usually with normal labs and EKG. At this point, you will need to follow-up with your primary care physician for possible referral to a neurologist for your chronic complaint
[2017-06-11 11:45] VITALS: BP 125/88; PULSE 96; TEMP 98.2
== END 2017-06-11 11:45 | disposition home or self-care (01) ==
LOC: JER 09:42
DX: R42 Dizziness and giddiness (principal); I10 Essential (primary) hypertension; F20.9 Schizophrenia, unspecified; F17.210 Nicotine dependence, cigarettes, uncomplicated
CPT/HCPCS: 99282-25

== ENCOUNTER 2017-06-25 20:44 | Emergency (ER) | payer OTHER ==
[2017-06-25 21:19] VITALS: BP 138/96; PULSE 97; TEMP 98.2; BMI 21.8
--- NOTE | 2017-06-25 21:59 | PDOC ---
History of Present Illness <Sonya Richardson - Last Filed: 06/25/17 22:24> - General History Source: Patient Exam Limitations: No Limitations - History of Present Illness Initial Comments: 06/25/17 22:57 Patient is a 62 year old male from [facility], with a significant past medical history of COPD, chronic dizziness who was brought by the EMS to the ED with complaints of dizziness that began at 5 hours ago. Patient reports sudden onset of dizziness began today while smoking a cigar during his activity hour. He reports chronic dizziness that occurs when ever he begins to smoke a cigar. Patient states last time he smoked a cigar was tonight before the dizziness began. Patient reports intermittent episodes of headache and room spins secondary to dizziness. Also notes that dizziness subsides when smoking of tobacco of any kind ceases. Patient was brought to the ED on June 06 for the same complaint. Physician notes patient had CT of chest done June 13, results consistent with COPD. Phsyician notes patient has been to ED four times in last 4 weeks. Patient has been blood drawn in ER four times last month, May 07, , , and . Denies fevers, chills. Denies nausea, vomiting. Denies any other symptoms. Allergies: None Social history: Former cigarette smoker, since teenager (smokes cigars occasionally). No alcohol. No illicit drugs. Surgical history: None PMD: None <Tin Carrion - Last Filed: 06/25/17 22:58> - General Chief Complaint: Lightheaded Stated Complaint: WEAKNESS Time Seen by Provider: 06/25/17 21:47 Past History - Past Medical History Anemia: No Asthma: No Cancer: No Cardiac Disorders: Yes CVA: No COPD: No CHF: No Dementia: No Diabetes: No GI Disorders: No Disorders: Yes HTN: Yes Hypercholesterolemia: No Liver Disease: No Psychiatric Problems: Yes (schizophrenia) Seizures: No Thyroid Disease: No - Surgical History Abdominal Surgery: No Appendectomy: No Cardiac Surgery: No Cholecystectomy: No Lung Surgery: No Neurologic Surgery: No Orthopedic Surgery: No - Immunization History Immunization Up to Date: Yes - Suicide/Smoking/Psychosocial Hx Smoking Status: Yes Smoking History: Current every day smoker Have you smoked in the past 12 months: Yes Number of Cigarettes Smoked Daily: 20 Information on smoking cessation initiated: No 'Breaking Loose' booklet given: 05/25/17 Hx Alcohol Use: No Drug/Substance Use Hx: No Substance Use Type: None Hx Substance Use Treatment: No <Sonya Richardson - Last Filed: 06/25/17 22:24> <Tin Carrion - Last Filed: 06/25/17 22:58> - Past Medical History Allergies/Adverse Reactions: Allergies Allergy/AdvReac Type Severity Reaction Status Date / Time Penicillins Allergy Unknown Verified 06/25/17 21:16 Home Medications: Ambulatory Orders Albuterol Sulfate Inhaler - [Ventolin Hfa Inhaler -] 1 - 2 inh PO QID 03/02/17 Amlodipine Besylate [Norvasc -] 5 mg PO DAILY 03/02/17 Ammonium Lactate [Quiana-Hydrolac] 240 gm TP BID 03/02/17 Aspirin [ASA -] 81 mg PO DAILY 03/02/17 Azelastine HCl 137 mcg NS BID 03/02/17 Cholecalciferol (Vitamin D3) [Vitamin D3] 50,000 unit PO WEEKLY 03/02/17 Clotrimazole 30 ml TP BID 03/02/17 Clozapine 300 mg PO BID 03/02/17 Divalproex *ER* [Depakote *ER* -] 500 mg PO BID 03/02/17 Divalproex Sodium [Depakote] 250 mg PO HS 03/02/17 Docusate Sodium 100 mg PO HS 03/02/17 Finasteride [Proscar] 5 mg PO DAILY 03/02/17 Lisinopril [Zestril] 40 mg PO DAILY 03/02/17 Meloxicam 7.5 mg PO DAILY 03/02/17 Tamsulosin HCl [Flomax] 0.4 mg PO DAILY 03/02/17 Levofloxacin [Levaquin] 500 mg PO DAILY #7 tablet 05/25/17 Review of Systems - Review of Systems Able to Perform ROS?: Yes Comments:: 06/25/17 22:57 CONSTITUTIONAL: Absent: fever, chills, diaphoresis, generalized weakness, malaise, loss of appetite HEENT: Absent: rhinorrhea, nasal congestion, throat pain, throat swelling, difficulty swallowing, mouth swelling, ear pain, eye pain, visual Changes CARDIOVASCULAR: Absent: chest pain, syncope, palpitations, irregular heart rate, lightheadedness , peripheral edema RESPIRATORY: Absent: cough, shortness of breath, dyspnea with exertion, orthopnea, wheezing, stridor, hemoptysis GASTROINTESTINAL: Absent: abdominal pain, abdominal distension, nausea, vomiting, diarrhea, constipation, melena, hematochezia GENITOURINARY: Absent: dysuria, frequency, urgency, hesitancy, hematuria, flank pain, genital pain MUSCULOSKELETAL: Absent: myalgia, arthralgia, joint swelling SKIN: Absent: rash, itching, pallor HEMATOLOGIC/IMMUNOLOGIC: Absent: easy bleeding, easy bruising, lymphadenopathy, frequent infections ENDOCRINE: Absent: unexplained weight gain, unexplained weight loss, heat intolerance, cold intolerance NEUROLOGIC: +Dizziness. +Headache. Absent: focal weakness or paresthesias, unsteady gait, seizure, mental status changes, bladder or bowel incontinence PSYCHIATRIC: Absent: anxiety, depression, suicidal or homicidal ideation, hallucinations. All Other Systems: Reviewed and Negative <Tin Carrion - Last Filed: 06/25/17 22:58> *Physical Exam - Vital Signs Last Vital Signs Temp Pulse Resp BP Pulse Ox 98.2 F 97 H 22 138/96 98 06/25/17 20:54 06/25/17 20:54 06/25/17 20:54 06/25/17 20:54 06/25/17 20:54 <Sonya Richardson - Last Filed: 06/25/17 22:24> - Vital Signs Last Vital Signs Temp Pulse Resp BP Pulse Ox 98.2 F 97 H 22 138/96 98 06/25/17 20:54 06/25/17 20:54 06/25/17 20:54 06/25/17 20:54 06/25/17 20:54 - Physical Exam Comments: 06/25/17 22:57 GENERAL: +Long tall and thin gentleman. Well developed, well nourished. Awake and alert. No acute distress. HEENT: Normocephalic, atraumatic. PERRLA, EOMI. No conjunctival pallor. Sclera are non- icteric. Moist mucous membranes. Oropharynx is clear. NECK: +Enlarged thyroid gland. Full ROM. No JVD. Carotid pulses 2+ and symmetric, without bruits. No lymphadenopathy. CARDIOVASCULAR: +Transient chest pain came and went less than 1 min. No current chest pain. Regular rate and rhythm. No murmurs, rubs, or gallops. Distal pulses are 2+ and symmetric. PULMONARY: No evidence of respiratory distress. Lungs clear to auscultation bilaterally. No wheezing, rales or rhonchi. ABDOMINAL: Soft. Non-tender. Non-distended. No rebound or guarding. No organomegaly. Normoactive bowel sounds. MUSCULOSKELETAL Normal range of motion at all joints. No bony deformities or tenderness. No CVA tenderness. EXTREMITIES: No pitting edema. No cyanosis. No clubbing. No edema. No calf tenderness. SKIN: Warm and dry. Normal capillary refill. No rashes. No jaundice. NEUROLOGICAL: +Alert. +Conversant. +Requested to eat dinner.. +Able to participate. awake, appropriate. Cranial nerves 2-12 intact. No deficits to light touch and temperature in face, upper extremities and lower extremities. No motor deficits in the in face, upper extremities and lower extremities. Normoreflexic in the upper and lower extremities. Normal speech. Toes are down-going bilaterally. Gait is normal without ataxia. PSYCHIATRIC: +Strange affect Cooperative. Good eye contact. Appropriate mood. <Tin Carrion - Last Filed: 06/25/17 22:58> Heart Score/ECG Review - ECG Intrepretation Comment:: 06/25/17 22:17 Normal signs of rhythm Left axis deviation Abnormal Compared to Last known ECG, June 06, 2017. Present ECG slightly slower rhythm in comparison to prior. <Tin Carrion - Last Filed: 06/25/17 22:58> Medical Decision Making - Medical Decision Making 06/25/17 22:07 62-year-old male has complaint of dizziness when he smokes. He said that he only smokes cigars. He said that he only smokes now at his residence. he goes to his group activities during the day. Patient is a tall, slender 62-year-old man who is able to participate in his review of systems. He denied any fever or chills, sore nausea, vomiting or abdominal pain or shortness of breath or any acute visual changes Patient has been seen 4 times last month in the emergency department including June 06. He had the exact same complaints. Today's pulse ox is 95% on room air, and his pulse is between [address] of his chest done this month on JUN 13 : There was moderate to severe COPD with no evidence of pulmonary masses or acute pathology There is an enlarged thyroid gland and sonographic follow-up was recommended Reevaluation of her abdomen demonstrating multiple bilateral renal cysts and fecal retention Lab work done 4 times last month that was essentially unremarkable Today's EKG is normal sinus rhythm at 94 bpm with a left axis deviation. There is no sign of any acute ischemia. QTC is within normal limits <Sonya Richardson - Last Filed: 06/25/17 22:24> *DC/Admit/Observation/Transfer <Sonya Richardson - Last Filed: 06/25/17 22:24> - Attestations Scribe Attestion: 06/25/17 22:19 Documentation prepared by Tin Carrion, acting as biomedical engineering technologist for Sonya Richardson MD/DO. <Tin Carrion - Last Filed: 06/25/17 22:58> Diagnosis at time of Disposition: Dizziness - Discharge Dispostion Disposition: HOME Condition at time of disposition: Stable - Patient Instructions Printed Discharge Instructions: DI for Dizziness-Nonvertigo Additional Instructions: please followup with your regular doctor Try to stop smoking since this seems to make you feel dizzy
--- NOTE | 2017-06-26 12:13 | EKG ---
Test Reason : Blood Pressure : / mmHG Vent. Rate : 094 BPM Atrial Rate : 094 BPM P-R Int : 180 ms QRS Dur : 094 ms QT Int : 382 ms P-R-T Axes : 093 -31 012 degrees QTc Int : 477 ms NORMAL SINUS RHYTHM LEFT AXIS DEVIATION ABNORMAL ECG WHEN COMPARED WITH ECG OF 06-JUN-2017 09:07, PREMATURE VENTRICULAR COMPLEXES ARE NO LONGER PRESENT CRITERIA FOR SEPTAL INFARCT ARE NO LONGER PRESENT Confirmed by CHRISTEN LEMUS MD ([id number]) on 06/26/2017 12:13:03 PM Referred By: Confirmed By:CHRISTEN LEMUS MD
== END 2017-06-26 01:25 | disposition home or self-care (01) ==
LOC: JER 20:44
DX: R42 Dizziness and giddiness (principal); J44.9 Chronic obstructive pulmonary disease, unspecified; I10 Essential (primary) hypertension; F20.9 Schizophrenia, unspecified; F17.290 Nicotine dependence, other tobacco product, uncomplicated
CPT/HCPCS: 93005; 93010; 99281-25